=== PATIENT | male | born 1990 | race Caucasian/White ===

== ENCOUNTER 2024-11-23 09:15 | Emergency (ER) | payer OTHER, SELFPAY ==
--- NOTE | ~2024-11-23 | XR_ITS ---
XR chest 2V 11/23/2024 11:02 Indication: Chest pain Procedure: 2 view chest Comparison: No prior studies for comparison. Findings: There is right upper and left lower lobe airspace disease, compatible with pneumonia. No pl eural effusion, edema or pneumothorax. Heart size is normal. Impression: 1: Bilateral airspace disease, compatible with pneumonia. Reviewed, dictated and finalized at location A. Impression: 1: Bilateral airspace disease, compatible with pneumonia.
--- NOTE | 2024-11-23 09:19 | ECG_ITS ---
Test Date: 2024-11-23 09:21:44 Measurements Intervals Round O Rate: 95 P: 47 VT: 135 QRS: 69 QRSD: 93 T: 56 QT: 332 QTc: 419 Interpretive Statements SINUS RHYTHM NORMAL ECG No previous ECG available for comparison Electronically Signed On 11-23-2024 09:36:37 CDT by Bandar Dumont D.O.
--- OUTSIDE RECORDS SUMMARY | 2024-11-23 09:23 | XMS_ITS | CONTINUITY OF CARE DOCUMENT ---
Author Name darryn cates Address Unknown Organization [facility] Address [address] [place] [address] Phone [phone] Care Team Providers Care Books Salesperson Name Role Phone Mrele LOVE, Tano Unavailable ATIYA PARK MD Unavailable [phone] ATIYA PARK MD Unavailable PROBLEMS Condition Status Date Provider Notes r/o Ischemia;neg stress and echo active Tano Bloom MD B12 deficiency;has script active Tano zheng MD r/o Hypercholesterolemia;nml 14 active Tano Bloom MD Chest pain-type to be determined;WILL BALES completed - Tano Bloom MD hx of Palpitations;neg telesentry, nml tsh, better wihout caffiene active Tano Bloom MD Petit mal status, epileptic active Tano haskins MD ENCOUNTERS Date Type Provider Location Encounter Diag nosis - In-person encounter Office Visit Tano Bloom MD [facility] hx of Palpitations;neg telesentry, nml tsh, better wihout caffieneChest pain-type to be determined;WILL WUr/o Hypercholesterolemia; nml 14B12 deficiency;has scriptr/o Ischemia;neg stress and echo - In-person encounter Office Visit Tano Bloom MD [facility] Petit mal status, epileptichx of Palpitations;neg telesentry, nml tsh, better wihout caffiene VITAL SIGNS Date Observation Value Provider Body Mass Index (Ratio) 20.05 kg/m2 Beth Martin blood pressure, diastolic 68 mm[Hg] Ta lady Martin blood pressure, systolic 125 mm[Hg] Bradley Martin pulse rate 78 /min Judy Martin oxygen saturation, oximetry 98 % Judy Martin respiratory rate E&M 16 /min Judy Martin weight E&M 128 [lb_av] Judy Martin blood pressure, diastolic 70 mm[Hg] Be lucyy Wallace blood pressure, systolic 120 mm[Hg] Bet sy Wallace Body Mass Index (Ratio) 20.05 kg/m2 Jean i Mohsen blood pressure, diastolic 74 mm[Hg] Ke rri Mohsen blood pressure, systolic 124 mm[Hg] Maria M Connolly pulse rate 65 /min Sera Tabatha underwood oxygen saturation, oximetry 98 % Sera Connolly respiratory rate E&M 16 /min Sera chatterjee weight E&M 128 [lb_av] Sera underwood height E&M 67 [in_i] Sera underwood ALLERGIES No Known Drug Allergies RESULTS Date Observation Value Provider Reference Range Interpretation Location platelet count 234 10*3/mm3 Elisabeth Villar hematocrit, blood 47.7 % Elisabeth Villar triglyceride, serum, fasting 149 mg/dL Elisabeth Villar HDL cholesterol, serum 61 mg/dL Elisabeth Villar lipoprotein, beta, serum, point, quantitative, calculated 38 mg/dL Elisabeth Villar cholesterol, serum 129 mg/dL Elisabeth Villar thyroid stimulating hormone, serum 1.080 u[IU]/mL Elisabeth Villra alanine aminotransferase (SGPT), serum 37 1/L Elisabeth Villar aspartate aminotransferase (SGOT), serum 25 1/L Elisabeth Villar creatinine, serum 1.07 mg/dL Elisabeth Villar potassium, serum 4.4 mmol/L Elisabeth Villar sodium, serum 140 mmol/L Elisabeth Villar HISTORY OF MEDICATION USE Medication Status Instructions Dates Provider Indications Com ments VITAMIN B-12 1000 MCG ORAL TABLET active One tablet daily 9 Tano Bloom MD LAMICTAL 200 MG ORAL TABLET active take 2 pills a day 1 Sera Connolly SOCIAL HISTORY Date Observation Value Provider smoking/tobacco cess ation, patient education and counseling yes Tano Bloom MD smoking status Current every day smoker Desmond Martin smoking status current Janie Wallace smoking/tobacco cess ation, patient education and counseling yes Tano Bloom MD alcohol use, average drinks per day social Sera Connolly alcohol use yes Sera Mays [facility] smoking, date started 2013 Sera Connolly smoking history, tot al pack/day 2 Sera Connolly cigarette use yes Sera lozoya smoking status Current every day smoker K nanci Connolly FUNCTIONAL STATUS Date Observation Value Provider periodic limb movement index absent (0) Janie Wallace FAMILY HISTORY Family Member Condition Father Family History of Co ronary Artery Disease: Father Family History of Co ronary Artery Disease: INSURANCE PROVIDERS Payer name Policy type / Coverage type [facility] ID COVENTRY- OPEN ACCESS/PPO Other [id number] TREATMENT PLAN Date Name Performer New Patient : H is updated medication list for this problem includes: Lamictal 200 Mg Tabs (Lamotrigine) ..... Take 2 pills a day Orders: T HYROID PANEL WITH TSH, 3RD GENERATION (7444) C OMPREHENSIVE METABOLIC PANEL W/EGFR (05632) C BC (INCLUDES DIFF/PLT) (6399) V ITAMIN B12 (927) H EMOGLOBIN A1c (496) V ITAMIN D, 25-HYDROXY, LC/MS/MS (50491) L IPID PANEL (7600) Tano Bloom MD Date Name LIPID PANEL VITAMIN D, 25-HYDROX Y, LC/MS/MS HEMOGLOBIN A1c VITAMIN B12 CBC (INCLUDES DIFF/P LT) COMPREHENSIVE METABO LIC PANEL W/EGFR THYROID PANEL WITH T SH, 3RD GENERATION X-Ray, Chest, PA & L ateral STR - Routine Complete Echo Mobile Cardiac Tele HISTORY OF PROCEDURES Procedure Date Procedure Name Provider Procedure Notes S tatus EKG Tano Bloom MD complete d
--- OUTSIDE RECORDS SUMMARY | 2024-11-23 09:23 | XMS_ITS | Clinical Summary ---
Author Organization [facility] Address [address] [place] [address] Care Team Providers Care Com Writer Name Role Phone Unknown, Provider Primary Care Provider Unavaila ble Source Comments [facility],non-owned Affiliates and Associated Physician Practices is amultiple site organization consisting of ambulatory clinics and hospital sitesin [place], [place], [place] and [place]. This disclosure is being madepursuant to the Care Everywhere program and may not contain all information available regarding this patient. Last updated 18.[facility] [employer] Allergies No known active allergies Medications * Be aware that medications may not be up to date on this document. Alwaysverify current medications with the patient. lamoTRIgine (LAMICTAL) 100 MG tablet Take 100 mg by mouth 2 times daily Active Social History Tobacco Use Types Packs/Day Years Used Date Smoking Tobacco: Former Cigarettes Q uit: 2019 Smokeless Tobacco: Never Sex and Gender Information Value Date Recorded Sex Assigned at Not on file Legal Sex Male 3:15 PM CDT Gender Identity Male 02/04/2020 3:24 PM CDT Sexual Orientation Not on file Last Filed Vital Signs Vital Sign Reading Time Taken Comments Blood Pressure 122/82 02/04/2020 3:26 PM CDT Pulse 90 02/04/2020 3:26 PM CDT Temperature 36.6 C (97.8 F) 02/04/2020 3:26 PM CDT Respiratory Rate 18 02/04/2020 3:26 PM CDT Oxygen Saturation 97% 02/04/2020 3:26 PM CDT Inhaled Oxygen Concentration - - Weight 63.5 kg (140 lb) 02/04/2020 3:26 PM CDT Height 167.6 cm (5' 6) 02/04/2020 3:26 PM CDT Body Mass Index 22.6 02/04/2020 3:26 PM CDT Plan of Treatment Health Maintenance Due Date Last Done Comments HIV SCREENING 09/07/2007 HEPATITIS C SCREENING 09/02/2010 DTAP/TDAP/TD VACCINES (1 - Tdap) 09/07/2011 HEPATITIS B VACCINE (1 of 3 - 19+ 3-dose series) 09/07/2011 COVID-19 VACCINE (1 - 2023-2 5 season) 2024 DEPRESSION SCREENING 06/22/2024 INFLUENZA VACCINE (Season Ended) 2025 ZOSTER VACCINE (1 of 2) 2042 HIB VACCINE Aged Out No longer eligi ble based on patient's age to complete this topic HPV VACCINE Aged Out No longer eligi ble based on patient's age to complete this topic MENINGOCOCCAL (Group B) VACC INE SHARED DECISION-MAKING Aged Out No longer eligibl e based on patient's age to complete this topic MENINGOCOCCAL GROUPS A/C/Y/W VACCINE Aged Out No longer eligible b ased on patient's age to complete this topic PNEUMOCOCCAL VACCINE Aged Out No long er eligible based on patient's age [place] [address] [facility] Care Teams Com Writer Relationship Specialty Start Date End Date Unknown, Provider PCP - General 02/04/20
[2024-11-23 09:30] VITALS: BP 124/84; PULSE 99; RESP 19; TEMP 36.7; O2SAT 96
[2024-11-23 09:35] VITALS: PULSE 99; O2SAT 96
[2024-11-23] MEDS: FAMOTIDINE 20 MG TABLET PO (09:48)
[2024-11-23] MEDS: MAG HYDROX/AL HYDROX/SIMETH 30 ML UDC PO (09:48)
--- OUTSIDE RECORDS SUMMARY | 2024-11-23 09:55 | XMS_ITS | CONTINUITY OF CARE DOCUMENT ---
Author Name darryn cates Address Unknown Organization [facility] Address [address] [place] [address] Phone [phone] Care Team Providers Care Glass Silverer Name Role Phone Merle LOVE, Tano Unavailable [phone] ATIYA PARK MD Unavailable [phone] ATIYA PARK MD Unavailable [phone] PROBLEMS Condition Status Date Provider Notes r/o [...] In-person encounter Office Visit Tano Bloom MD [facility] hx of Palpitations;neg telesentry, nml tsh, better wihout caffieneChest pain-type to be determined;WILL WUr/o Hypercholesterolemia; nml 14B12 deficiency;has scriptr/o Ischemia;neg stress and echo - In-person encounter Office Visit Tano Bloom MD [facility] Petit mal status, epileptichx of Palpitations;neg [...] thyroid stimulating hormone, serum 1.080 u[IU]/mL Elisabeth Villar alanine aminotransferase (SGPT), serum 37 1/L Elisabeth [...] Sera Connolly alcohol use yes Sera Mays [facility] smoking, date started 2013 Sera Connolly smoking [...] Payer name Policy type / Coverage type [facility] ID COVENTRY- OPEN ACCESS/PPO Other [id number] TREATMENT PLAN Date Name Performer New Patient : H is updated medication list for this problem includes: Lamictal 200 Mg Tabs (Lamotrigine) ..... Take 2 pills a day Orders: T HYROID PANEL WITH TSH, 3RD GENERATION (7444) C OMPREHENSIVE METABOLIC PANEL W/EGFR (88411) C BC (INCLUDES DIFF/PLT) (6399) V ITAMIN B12 (927) H EMOGLOBIN A1c (496) V ITAMIN D, 25-HYDROXY, LC/MS/MS (15446) L IPID PANEL (7600) Tano Bloom MD [...]
--- OUTSIDE RECORDS SUMMARY | 2024-11-23 09:55 | XMS_ITS | Clinical Summary ---
Author Organization [facility] Address [address] [place] [address] Care Team Providers Care Airport Security Screener Name Role Phone Unknown, Provider Primary Care Provider Unavaila ble Source Comments [facility],non-owned Affiliates and Associated Physician Practices is amultiple site organization consisting of ambulatory clinics and hospital sitesin [place], [place], [place] and [place]. This disclosure is being madepursuant to the Care Everywhere program and may not contain all information available regarding this patient. Last updated 18.[facility] [employer] Allergies No known active allergies Medications * [...] patient's age to [place] [phone] [facility] Care Teams Airport Security Screener Relationship Specialty Start Date End Date Unknown, Provider PCP - General 02/04/20
[2024-11-23 10:36] LABS: Basophils Absolute Auto 0.1 K/mm3 (0.0-0.1); Basophils Percent Auto 0.3 % (0.2-1.2); Eosinophils Percent Auto 0.2 % (0-4.4); Hematocrit 46.3 % (42.0-52.0); Hemoglobin 16.3 g/dL (14.0-18.0); Immature Granulocyte Absolute 0.06 K/mm3 (0.00-0.031); Immature Granulocyte Percent A 0.4 % (0-0.5); Lymphocytes Absolute Auto 1.18 K/mm3 (0.9-3.2); Mean Corpuscular HGB Conc 35.2 g/dl (32-36); Mean Corpuscular Hemoglobin 30.8 pg (26-34); Mean Corpuscular Volume 87.4 fl (80-100); Mean Platelet Volume 8.5 fl (7.4-10.4); Monocytes Percent Auto 5.7 % (2.6-8.5); Neutrophils Absolute Auto 14.5 K/mm3 (1.3-6.7); Neutrophils Percent Auto 86.4 % (45.5-73.1); Platelet Count Result 218 k/mm3 (150-375); Red Cell Distribution Width 12.7 % (11.5-14.5); White Blood Count 16.8 K/mm3 (4.5-10.0)
[2024-11-23 10:51] LABS: Alanine Aminotransferase 34 U/L (6-50); Albumin Level 4.3 g/dL (3.5-5.1); Alkaline Phosphatase 100 U/L (38-126); Anion Gap 9 mmol/L (4-12); Aspartate Amino Transferase 39 U/L (17-59); Blood Urea Nitrogen 16 mg/dL (9-20); Calcium 9.6 mg/dL (8.4-10.2); Carbon Dioxide 25 mmol/L (22-30); Chloride 104 mmol/L (98-107); Estimated CRCL calculation 96 ml/min; Estimated Glomerular Filt Rate > 60; Glucose 108 mg/dL (65-110); Lipase 298 U/L (23-300); Potassium 3.9 mmol/L (3.4-5.0); Sodium 138 mmol/L (137-145); Total Protein 7.4 g/dL (6.3-8.2)
[2024-11-23] MEDS: AZITHROMYCIN 250 MG TABLET 500 MG PO (11:31)
[2024-11-23] MEDS: ACETAMINOPHEN 500 MG TABLET 1000 MG PO (11:31)
[2024-11-23 11:34] VITALS: BP 119/80; PULSE 79; RESP 19; O2SAT 98
--- NOTE | 2024-11-23 14:09 | ED_ITS ---
HPI - Chest Pain General Chief Complaint: Chest Pain Stated Complaint: chest pains shortness of breath multiple complaint Time Seen by Provider: 11/23/24 09:20 History of Present Illness HPI narrative: Patient presents stating that he was having some epigastric/chest pain, felt like his GERD, with some cough, nausea, headache. Started earlier this morning. Also noticed dark tarry stools. Related Data Allergies Allergy/AdvReac Type Severity Reaction Status Date / Time No Known Allergies Allergy Verified 11/23/24 09:34 Review of Systems 2 Review of Systems: All systems reviewed & are unremarkable except as noted in HPI and below Exam 2 Narrative: EXAMINATION OF ORGAN SYSTEMS/BODY AREAS: Constitutional: Vital signs per nursing GENERAL:[No acute distress, non-toxic appearing.] HEAD: Normal with no signs of head trauma. EYES: EOMI, conjunctiva normal ENT: Hearing grossly intact LUNGS: Nonlabored breathing. HEART: [Regular rate and rhythm] ABD: [Soft], [nontender to palpation] RECTAL: Grossly brown stool that is guaiac negative EXT: Normal range of motion SKIN: [No rashes or lesions.] NEURO: [Alert and oriented x 3. No gross focal sensory or strength deficits.] PSYCH: Normal affect Course Vital Signs Vital signs: Vital Signs Temperature 98.0 F 11/23/24 09:30 Pulse Rate 99 11/23/24 09:30 Respiratory Rate 19 11/23/24 09:30 Blood Pressure 124/84 11/23/24 09:30 Pulse Oximetry 96 11/23/24 09:30 Oxygen Delivery Room Air 11/23/24 09:30 Temperature 98.0 F 11/23/24 09:30 Pulse Rate 79 11/23/24 11:34 Respiratory Rate 19 11/23/24 11:34 Blood Pressure 119/80 11/23/24 11:34 Pulse Oximetry 98 11/23/24 11:34 Oxygen Delivery Room Air 11/23/24 09:35 MDM - Chest Pain MDM Narrative Medical decision making narrative: ED COURSE AND MEDICAL DECISION MAKIN-year-old male presenting with chest pain. EKG done in triage negative for acute ischemic changes. Cardiac workup is initiated. EKG: Performed in triage and interpreted by me. Normal sinus rhythm. Rate 95. Normal axis. NJ normal. QRS duration normal. QTc normal. No pathologic Q waves. No ST segment elevation or depression to suggest acute ischemia. No RV strain pattern. HEART score is 0 with no acute ischemic changes on EKG and negative troponin making ACS unlikely. Wells low risk with negative PERC making PE unlikely. Presentation not consistent with dissection or aneurysm without radiation of pain or pulse deficits. CXR shows possible atypical pneumonia, but his negative for mediastinal widening. No abdominal pain or signs of sepsis that would be concerning for esophageal perforation or mediastinitis. No cardiomegaly or JVD to suggest pericardial effusion/tamponade. Guaiac was negative so doubt internal bleeding. After fluids, Pepcid, Maalox, Reglan, Protonix, on re-evaluation patient feels much better. I discussed findings with him. On repeat evaluation just prior to discharge, the patient is no acute distress. I had a long discussion with the patient and with shared decision making, [he] is comfortable with outpatient management. [He] was given clear return instructions by myself in person as well as on discharge paperwork. Lab Data 11/23/24 10:26 11/23/24 10:26 Labs: Lab Results 11/23/24 Range/Units 10:26 WBC 16.8 H (4.5-10.0) K/mm3 RBC 5.30 (4.6-6.20) M/mm3 Hgb 16.3 (14.0-18.0) g/dL Hct 46.3 (42.0-52.0) % MCV 87.4 (80-100) fl MCH 30.8 (26-34) pg MCHC 35.2 (32-36) g/dl RDW 12.7 (11.5-14.5) % Plt Count 218 (150-375) k/mm3 MPV 8.5 (7.4-10.4) fl Immature Gran % (Auto) 0.4 (0-0.5) % Neut % (Auto) 86.4 H (45.5-73.1) % Lymph % (Auto) 7.0 L (18.3-44.2) % [place] % (Auto) 5.7 (2.6-8.5) % Eos % (Auto) 0.2 (0-4.4) % Baso % (Auto) 0.3 (0.2-1.2) % Lymph # (Auto) 1.18 (0.9-3.2) K/mm3 [place] # (Auto) 1.0 H (0.1-0.6) K/mm3 Eos # (Auto) 0.0 (0-0.3) K/mm3 Baso # (Auto) 0.1 (0.0-0.1) K/mm3 Abs Immat Gran (auto) 0.06 H (0.00-0.031) K/mm3 Absolute Neuts (auto) 14.5 H (1.3-6.7) K/mm3 Absolute Nucleated RBC 0.000 (0.0-0.012) K/mm3 Nucleated RBC % 0.0 (0.0-0.2) % Sodium 138 (137-145) mmol/L Potassium 3.9 (3.4-5.0) mmol/L Chloride 104 (98-107) mmol/L Carbon Dioxide 25 (22-30) mmol/L Anion Gap 9 (4-12) mmol/L BUN 16 (9-20) mg/dL Creatinine 0.87 (0.7-1.3) mg/dL Estim Creat Clear Calc 96 ml/min Estimated GFR > 60 (59 - ) Glucose 108 (65-110) mg/dL Calcium 9.6 (8.4-10.2) mg/dL Total Bilirubin 1.0 (0.2-1.3) mg/dL AST 39 (17-59) U/L ALT 34 (6-50) U/L Alkaline Phosphatase 100 (38-126) U/L Total Protein 7.4 (6.3-8.2) g/dL Albumin 4.3 (3.5-5.1) g/dL Lipase 298 (23-300) U/L Discharge Plan Discharge Clinical Impression: Pneumonia Patient Disposition: Home Condition: Stable Instructions: Antibiotic Form, Pneumonia (ED) Additional Instructions: Please follow up with a PCP and take the medications as prescribed; you can always return for any further issues. Patient Language: Lao Prescriptions: New azithromycin 250 mg tablet 250 mg PO DAILY 4 Days Qty: 4 0RF Rx Instructions: start on day 2 of therapy famotidine 20 mg tablet 20 mg PO DAILY Qty: 30 0RF alum-mag hydroxide-simeth [Maalox Advanced] 200-200-20 mg/5 mL suspension 10 ml PO QID PRN (Reason: dyspepsia) Qty: 200 0RF Rx Instructions: administer between meals and at bedtime ondansetron 4 mg tablet,disintegrating 4 mg PO Q8H PRN (Reason: nausea and vomiting) Qty: 10 0RF Follow-up/Referrals: UNKNOWN,DOCTOR [Primary Care Provider] -
== END 2024-11-23 11:35 | disposition home or self-care (01) ==
PROVIDERS: Emergency Provider Emergency Medicine
DX: J18.9 Pneumonia, unspecified organism (principal)
CPT/HCPCS: 36415; 71046; 80053; 83690; 85025; 93005; 99284; A9270